=== PATIENT | male | born 1955 | race Caucasian/White ===

== ENCOUNTER → 2019-02-02 | Outpatient (CLI) | payer MEDICARE, OTHER | END | disposition home or self-care (01) | LOC: RAD 17:21 | PROVIDERS: ATTEND Genetic Counselor, MS | DX: K57.30 Diverticulosis of large intestine without perforation or abscess without bleeding (principal); N20.0 Calculus of kidney; N28.89 Other specified disorders of kidney and ureter; R31.9 Hematuria, unspecified | CPT/HCPCS: 74176 ==

== ENCOUNTER → 2019-03-14 | Outpatient (CLI) | payer MEDICARE, OTHER | END | disposition home or self-care (01) | LOC: CFH 09:41 | PROVIDERS: ATTEND Internal Medicine Cardiovascular Disease | DX: Z13.6 Encounter for screening for cardiovascular disorders (principal); I08.0 Rheumatic disorders of both mitral and aortic valves; I25.10 Atherosclerotic heart disease of native coronary artery without angina pectoris; I10 Essential (primary) hypertension; E78.00 Pure hypercholesterolemia, unspecified; J84.10 Pulmonary fibrosis, unspecified | CPT/HCPCS: 75571; 93306 ==

== ENCOUNTER 2019-06-30 20:28 | Emergency (ER) | payer MEDICARE, OTHER ==
[~2019-06-30] VITALS: Ht 190.5 cm; Wt 99.7 kg
[2019-06-30 20:30] VITALS: BP 128/78
[2019-06-30] MEDS ORDERED: LIDOCAINE 1%-EPI 1:100K, 20ML ONE (20:51)
[2019-06-30] MEDS ORDERED: NEOSPORIN OINT. PKT 1 PACKET ONE (20:57)
--- NOTE | 2019-06-30 20:59 | NUR ---
LÁZARO PULLED FOR PROVIDER ADMIN. SUTURE KIT SET UP.
[2019-06-30] MEDS ORDERED: AMOXICILLIN/CLAV 875-125MG TABLET ONE (21:18)
[2019-06-30] MEDS ORDERED: DIPH,PERTUSS(ACELL),TET VAC/PF 0.5 ML IM-VACC ONE ×2 (21:24→22:00)
--- NOTE | 2019-06-30 21:51 | NUR ---
SUTURES COMPLETE. BACITRACIN APPLIED AND COVERED WITH CLEAN DRY DRESSING.
[2019-06-30] MEDS ORDERED: AMOXICILLIN/CLAV 875-125MG TABLET PO ONE (22:00)
[2019-06-30] MEDS ORDERED: LIDOCAINE 2%, 20ML SQ ONE (22:00)
== END 2019-06-30 21:53 | disposition home or self-care (01) ==
LOC: ED 21:25
DX: S61.052A Open bite of left thumb without damage to nail, initial encounter (principal); S61.032A Puncture wound without foreign body of left thumb without damage to nail, initial encounter; W54.0XXA Bitten by dog, initial encounter; Y93.89 Activity, other specified; Y92.009 Unspecified place in unspecified non-institutional (private) residence as the place of occurrence of the external cause; Y99.8 Other external cause status
CPT/HCPCS: 12001; 90471; 90715; 99283

== ENCOUNTER 2020-04-19 08:38 | Outpatient (CLI) | payer MEDICARE, OTHER | END 2020-04-19 23:59 | disposition home or self-care (01) | LOC: CFH 08:38 | PROVIDERS: ATTEND Registered Nurse | DX: I08.8 Other rheumatic multiple valve diseases (principal); Z85.46 Personal history of malignant neoplasm of prostate | CPT/HCPCS: 93306 ==